=== PATIENT | female | born 1940 | race Caucasian/White ===

== ENCOUNTER 2016-11-02 12:57 | Inpatient (IN) | payer MEDICARE, BC ==
--- NOTE | ~2016-11-02 | EKG ---
PATIENT: ADALI TAYLOR UNIT #: [id number] Ventricular Rate: 57 BPM Atrial Rate: 57 BPM P-R Interval: 230 ms QRS Duration: 110 ms Q-T Interval: 494 ms QTC Calculation(Bezet): 480 ms P [place]: 89 degrees Calculated R [place]: -11 degrees Calculated T [place]: -119 degrees Diagnosis Line: Sinus bradycardia with 1st degree A-V block Diagnosis Line: Septal infarct , age undetermined Diagnosis Line: ST and T wave abnormality, consider anterolateral Diagnosis Line: ischemia Diagnosis Line: Abnormal ECG Diagnosis Line: When compared with ECG of 04-NOV-2016 09:29, Diagnosis Line: Nonspecific T wave abnormality, worse in Inferior Diagnosis Line: leads Diagnosis Line: QT has shortened Diagnosis Line: Confirmed by OTILIO KENDALL, OSCAR ([id number]) on Diagnosis Line: 11/07/2016 3:56:33 PM INTERPRETING MD: JAVIER
--- NOTE | ~2016-11-02 | EKG ---
PATIENT: ADALI TAYLOR UNIT #: [id number] Ventricular Rate: 76 BPM Atrial Rate: 76 BPM P-R Interval: 218 ms QRS Duration: 114 ms Q-T Interval: 472 ms QTC Calculation(Bezet): 531 ms P [place]: 75 degrees Calculated R [place]: -22 degrees Calculated T [place]: 180 degrees Diagnosis Line: Sinus rhythm with 1st degree A-V block Diagnosis Line: Left ventricular hypertrophy with repolarization Diagnosis Line: abnormality Diagnosis Line: Prolonged QT Diagnosis Line: Abnormal ECG Diagnosis Line: When compared with ECG of 02-NOV-2016 13:40, Diagnosis Line: Sinus rhythm has replaced Atrial flutter Diagnosis Line: T wave inversion no longer evident in Inferior Diagnosis Line: leads Diagnosis Line: T wave inversion more evident in Anterolateral Diagnosis Line: leads Diagnosis Line: QT has lengthened Diagnosis Line: Confirmed by TIAGO HAIRSTON MD ([id number]) on 11/05/2016 Diagnosis Line: 7:26:59 AM INTERPRETING MD: MARIKA KENDALL
--- NOTE | ~2016-11-02 | CR72 ---
[facility] A Service of [facility] & [facility] / [facility] RADIOLOGY TEXT RESULTS PATIENT: ADALI TAYLOR LOCATION: [facility] [id number] : 41 UNIT #: [id number] AGE: [address]: Jay Abbott MD SEX: F ORDER DR: [id number] [facility] [address] [place], [place] [address] [id number] I MR#: [id number] #: [id number] NAME: ADALI TAYLOR : 1940 SEX: F STUDY DATE/TIME: 11/02/2016 15:53 UNIT: [facility] ROOM: [facility] STUDY DESCRIPTION: CR Chest Single View Portable Attending Physician: Jay Abbott M.D. Ordering Physician: Anita Verdugo M.D. Primary Care Physician: Mercedes Vargas M.D. MEDICAL IMAGING REPORT This report is preliminary unless electronic signature is present EXAM Single view of the chest, 11/02/16 at 15:53 hours COMPARISON STUDIES Chest two views dated 02/11/12 HISTORY Chest pain today. Cough and congestion. FINDINGS Two views of the chest were obtained. Postoperative cardiac changes are noted with evidence of aortic valve replacement. There is diffuse prominence of the interstitial markings which could be related to acute or chronic interstitial lung disease. Given that it is slightly more prominent when compared to the previous study from 5 years, it could be due to mild interval worsening, and partly it could also be technical. There is mild opacification of the left lateral CP angle, new. It could be related to pleural thickening and/or mild fluid. No pneumothorax. Borderline sized heart. Mild bilateral shoulder osteoarthritic changes, particularly involving the acromioclavicular joints. Dictated by... Madeline Csatano M.D. THIS IS AN ELECTRONICALLY VERIFIED REPORT Madeline Castano M.D. at 11/03/2016 5:12 PM CPR/ea TD: 11/02/2016 22:47 JOB #: [id number] [facility] A Service of [facility] & [facility] RADIOLOGY TEXT RESULTS PATIENT: ADALI TAYLOR LOCATION: [place] [address] : [birth year] UNIT #: [id number] AGE: [address]: Jay Abbott MD SEX: F ORDER DR: MEDICAL IMAGING REPORT Page 1 of 1 COPY
--- NOTE | ~2016-11-02 | HP ---
Unit #: [id number] #: [id number] Patient: ADALI TAYLOR [id number] [place] [address] [facility]. [place], [place] [address] [id number] I MR#: [id number] NAME: ADALI TAYLOR ROOM: 563 Age: 76 Sex: F Admission Date: 11/03/2016 : 1940 Attending Physician: Jay Abbott M.D. Primary Care Physician: Mercedes Vargas M.D. HISTORY AND PHYSICAL HISTORY OF PRESENT ILLNESS This is a 76-year-old female known to Dr. Abbott with a past medical history of hypertension, hyperlipidemia, and valvular heart disease with severe mitral insufficiency status post mitral valve replacement with a [place] mechanical valve on August 08, 2002 at [facility]. Additional past medical history includes: COPD, osteoarthritis, and peripheral neuropathy. The patient presented to the hospital with complaints of shortness of breath and weakness for the past two weeks. She has also had a nonproductive cough. In the emergency department, her INR was 6.6. Additional labs revealed a hemoglobin of 14.3 with a platelet count of 215,000. Potassium was normal. Creatinine was 1 with a BUN of 14. BNP was mildly elevated at 463. Chest x-ray revealed possible underlying interstitial lung disease with a mild opacity in the left lateral CT angle. EKG revealed atrial flutter with a ventricular rate of 84 beats per minute. There were some T-wave abnormalities in the inferolateral leads. She was admitted for new-onset atrial fibrillation and congestive heart failure. PAST MEDICAL HISTORY 1. Severe mitral regurgitation, status post mitral valve replacement using a [address] [place] mechanical heart valve per Dr. Escobedo on August 08, 2002 at [facility]. 2. Cardiac catheterization, July 1995, was positive for vasospastic angina and an inferolateral wall myocardial infarction. See full report. 3. A 2D echocardiogram, August 10, 2002, revealed left ventricular ejection fraction greater than 75% while on dobutamine. Normal functioning prosthetic valve. Calculated prosthetic mitral valve area of 4.26 cm squared with a peak gradient of 19 mmHg and a mean gradient of 6 mmHg. [id number] tricuspid regurgitation. RVSP 40-50 mmHg. 4. Chronic anticoagulation with Coumadin. 5. Hypertension. 6. Hyperlipidemia. 7. Infrarenal abdominal aortic aneurysm, details unavailable. 8. COPD. 9. Osteoarthritis. 10. Peripheral neuropathy. 11. Vitamin D deficiency. 12. Reformed smoker. SOCIAL HISTORY Unit #: [id number] #: [id number] Patient: ADALI TAYLOR A Nonsmoker. PAST SURGICAL HISTORY 1. Cataract extraction. 2. Hysterectomy. 3. Mechanical mitral valve replacement. 4. Previous cardiac catheterization, July 1995, was consistent with vasospastic angina and inferior lateral wall myocardial infarction. 5. Tonsillectomy. HOME MEDICATIONS 1. Mucinex ER 600/30 mg one tablet p.o. b.i.d. 2. Edarbyclor 40/25 mg one tablet p.o. daily. 3. Carvedilol 6.25 mg p.o. b.i.d. 4. Tramadol 50 mg p.o. b.i.d. 5. Warfarin 5 mg p.o. Thursday through Thursday and 7.5 mg on Thursday. ALLERGIES No known drug allergies. SOCIAL HISTORY The patient is a reformed smoker. There are no reports of alcohol or illicit drug use. FAMILY HISTORY Mother and sister had hypertension. Brother has diabetes and high cholesterol. REVIEW OF SYSTEMS A 10-point review of systems negative except for details noted above in HPI. PHYSICAL EXAMINATION CONSTITUTIONAL: This is a 76-year-old female in no acute distress. SKIN: Warm and dry. NECK: Supple. No jugular vein distention. No hepatojugular reflux. Normal carotid upstrokes. No carotid bruits auscultated. HEART: S1, S2. No murmurs, rubs, or gallops. LUNGS: Bilateral breath sounds have good air entry throughout all lung chappell. Diminished in the bases. Respirations even and nonlabored. No rales, rhonchi, or wheezes. ABDOMEN: Soft, nontender, nondistended. Positive bowel sounds auscultated x4 quadrants. No ascites noted. EXTREMITIES: Bilateral lower extremities: No significant edema. DP and PT pulses 2+. Capillary refill less than 3 seconds. DIAGNOSTIC STUDIES LABORATORY: White cell count 9.8, hemoglobin 14.3, hematocrit 43.4, platelets 215,000. Sodium 133, potassium 4.4, chloride 92, CO2 of 29, BUN 14, creatinine 1, glucose 111. Magnesium 2. BNP 463. Urinalysis negative. INR 6.6. IMAGING: Chest x-ray reveals questionable underlying interstitial lung disease. Mild opacification in the left lateral costophrenic angle. CARDIOVASCULAR: Electrocardiogram reveals atrial flutter with T-wave abnormality noted inferolateral leads. Ventricular rate 84 beats per minute. Unit #: [id number] #: [id number] Patient: ADALI TAYLOR IMPRESSION 1. New-onset atrial fibrillation with controlled ventricular rate. 2. Status post mitral valve replacement with mechanical prosthesis for severe mitral regurgitation in July 2002. 3. Congestive heart failure, secondary to atrial fibrillation and underlying mitral valve disease. 4. Over anticoagulation due to poor oral intake. PLAN 1. The patient presented to the hospital with complaints of weakness and a cough. She was then admitted for newly diagnosed atrial fibrillation/atrial flutter and congestive heart failure. Will adjust Coreg and start amiodarone. 2. The patient will be diuresed. 3. Coumadin will be placed on hold. Will repeat a daily PT/INR. If the patient does not convert to normal sinus rhythm in the next 24 hours, will plan for direct current cardioversion. Dictated by Jes Romo APRN for Yevgeniy Zaman TD: 11/04/2016 08:58 JOB #: [id number] HISTORY AND PHYSICAL Page 1 of 1 X X HISTORY AND PHYSICAL
--- NOTE | ~2016-11-02 | CR63 ---
[facility] A Service of [facility] / [facility] RADIOLOGY TEXT RESULTS PATIENT: ADALI TAYLOR LOCATION: [place] [address]- : [birth year] UNIT #: [id number] AGE: [address]: Jay Abbott MD SEX: F ORDER DR: [id number] [facility] [address] [place], [place] [address] [id number] I MR#: [id number] Acc #: [id number] NAME: ADALI ATYLOR : 1940 SEX: F STUDY DATE/TIME: 11/06/2016 7:41 UNIT: [facility] ROOM: [facility] STUDY DESCRIPTION: CR Chest 2 View Attending Physician: Jay Abbott M.D. Ordering Physician: Jay Abbott M.D. Primary Care Physician: Mercedes Vargas M.D. MEDICAL IMAGING REPORT This report is preliminary unless electronic signature is present EXAM Chest PA and lateral 11/06/2016 HISTORY Shortness of breath for 8 days. COPD. Benign essential hypertension. Cough. FINDINGS There is mild cardiac enlargement status post median sternotomy and valvular replacement. Thoracic aorta is minimally calcified. Lungs are hyperinflated but otherwise clear. There are no pleural effusions. IMPRESSION Mild cardiac enlargement status post median sternotomy. No active pulmonary disease. Dictated by... Renard Raymond M.D. THIS IS AN ELECTRONICALLY VERIFIED REPORT Renard Raymond M.D. at 11/06/2016 1:44 PM REYES/bryson TD: 11/06/2016 09:53 JOB #: [id number] MEDICAL IMAGING REPORT Page 1 of 1 COPY
--- NOTE | ~2016-11-02 | DS ---
Unit #: [id number] #: [id number] Patient: ADALI TAYLOR [id number] [address] [address] [id number] I MR#: [id number] NAME: ADALI TAYLOR ROOM: 3 Age: 76 Sex: F Admission Date: 11/03/2016 : 1940 Discharge Date: 11/06/2016 Attending Physician: Jay Abbott M.D. Primary Care Physician: Mercedes Vargas M.D. DISCHARGE SUMMARY ADDENDUM Correction: The patient was not on home oxygen and is being evaluated here in the hospital to go home with home oxygen. Dictated by... Janet Arnold APRN for Yevgeniy Zaman TD: 11/06/2016 15:58 JOB #: [id number] DISCHARGE SUMMARY Page 1 of 1 X X DISCHARGE SUMMARY
--- NOTE | ~2016-11-02 | DS ---
Unit #: [id number] #: [id number] Patient: ADALI TAYLOR [id number] [address] [place], [place] [address] [id number] MR#: [id number] NAME: ADALI TAYLOR ROOM: 563 Age: 76 Sex: F Admission Date: 11/03/2016 : 1940 Discharge Date: 11/06/2016 Attending Physician: Jay Abbott M.D. Primary Care Physician: Mercedes Vargas M.D. DISCHARGE SUMMARY HOSPITAL COURSE The patient is a 76-year-old female who is known to Dr. Abbott who presented to the hospital with shortness of breath and weakness x2 weeks. She was found to be in A-flutter with a controlled ventricular rate which was new for her. The patient also had a supratherapeutic INR at 6.6 and some mild CHF due to her A-flutter as well as the history of the mitral valve replacement. Initially, the patient was started on an amiodarone IV load as well as a maintenance dose with the plan to cardiovert if her rhythm did not convert in 24 hours. Therefore, the patient did not convert and was taken for cardioversion on 11/04/16. The patient was placed on p.o. amiodarone and her Coreg dose decreased. The patient has maintained sinus elias to sinus rhythm since the cardioversion. The patient was given FFP on admission to decrease her INR and the Coumadin was held. Coumadin has since been restarted on the INR on date of discharge is at 1.5 with the plan to give subcu Lovenox dose today prior to discharge and then to increase the daily dose back to her home dose with recheck on Thursday. The patient had an echo done on 11/03/16 that showed an EF of 15 to 20%, inferior wall akinesis, moderately dilated left atrium, mildly enlarged right atrium, moderate TR, RVSP of 54 mmHg and a small pericardial effusion versus fat tissue. On the date of discharge, the patient is stable with no complaints of chest pain, dizziness, lightheadedness or shortness of breath. The patient has been on oxygen during her stay. We will plan for nurse to titrate and wean off if the patient can tolerate no oxygen. She was on oxygen at home. Therefore, she should be good. We will follow. DISCHARGE ALLERGIES No known allergies. DISCHARGE MEDICATIONS 1. Amiodarone 200 mg p.o. twice a day for two weeks, then 200 mg daily. 2. Coumadin 5 mg p.o. daily. 3. Mucinex DM one tab q.12 hours as needed for congestion. 4. Coreg 6.25 mg p.o. twice a day. 5. Lasix 40 mg p.o. twice a day. 6. Losartan 100 mg p.o. daily. 7. Tramadol 50 mg p.o. twice a day. DISCHARGE LABS PT and INR on Thursday and a BNP and BMP one week prior to the office visit which is scheduled for December 11 at 2:45. Unit #: [id number] #: [id number] Patient: ADALI TAYLOR Most recent laboratory studies show CK total 36, sodium 134, potassium 4.5, chloride 91, CO2 36, glucose 95, BUN 26, creatinine 1.1. BNP 148. White count 7.7, hemoglobin 11.9, hematocrit 36.3, platelets 178. INR 1.5. Troponin 0.04. Diagnostic imaging: Chest x-ray showed mild cardiac enlargement but no active pulmonary disease. DISCHARGE PLAN Patient to be discharged home today with followup in the office as well as lab work to be done on Thursday also prior to the visit in one month from now. The patient is stable and ready for discharge home. PHYSICAL EXAMINATION GENERAL APPEARANCE: This a 76-year-old white female who is alert and oriented x3, in no apparent distress. VITAL SIGNS: Blood pressure 125/76. Temperature 97.7. Heart rate 59. Respirations 18. CARDIOVASCULAR: Regular rate. No ectopy. No murmurs. No rubs. No gallops. LUNGS: Clear. No rales or rhonchi. ABDOMEN: Soft. Bowel sounds positive. Nontender. Nondistended. No masses. EXTREMITIES: No swelling. NEUROLOGIC: No neuro deficits noted. Dictated by... Janet Arnold APRN for Yevgeniy Zaman TD: 11/06/2016 14:16 JOB #: [id number] DISCHARGE SUMMARY Page 1 of 1 X X DISCHARGE SUMMARY
--- NOTE | ~2016-11-02 | EKG ---
PATIENT: ADALI TAYLOR UNIT #: [id number] Ventricular Rate: 84 BPM Atrial Rate: 258 BPM QRS Duration: 108 ms Q-T Interval: 394 ms QTC Calculation(Bezet): 465 ms P [place]: 122 degrees Calculated R [place]: 53 degrees Calculated T [place]: -33 degrees Diagnosis Line: Atrial flutter with variable A-V block Diagnosis Line: Septal infarct , age undetermined Diagnosis Line: Abnormal ECG Diagnosis Line: No previous ECGs available Diagnosis Line: Confirmed by TIAGO HAIRSTON MD ([id number]) on 11/02/2016 Diagnosis Line: 4:55:16 PM INTERPRETING MD: MARIKA KENDALL
[~2016-11-02 12:57] MED LIST: AMOXICILLIN PO; CALCIUM + D 6001 TA1 PO; CALCIUM 500 + D1 TAB PO; COREG6.25 MG PO; COUMADIN PO; COUMADIN7.5 MG; COZAAR PO; CRESTOR PO; CRESTOR10 MG PO; HYZAAR 100-25 T1 TAB PO; LOSARTAN-HCTZ1 EAC1 PO; LOVENOX SUBQ; NEXIUM PO; ZYRTEC PO
[2016-11-02 14:43] LABS: POC - CKMB 1.3 ng/mL (0.0-7.9); POC - TROPONIN <0.05 ng/mL (<=0.05)
[2016-11-02 14:53] LABS: BASOPHIL% 0.3 % (0-2.5); EOSINOPHIL# 0.1 X10e3 (0-0.7); EOSINOPHIL% 0.8 % (0.0-7.0); HEMATOCRIT 43.4 % (35.0-45.0); HEMOGLOBIN 14.3 gm/dL (12.0-16.0); LYMPHOCYTE# 1.1 X10e3 (1.0-3.5); LYMPHOCYTE% 11.4 % (17.0-45.0); MEAN CELL VOLUME 92.7 FL (83-96); MEAN CORPUSCULAR HEMOGLOBIN 30.6 PG (28-34); MEAN PLATELET VOLUME 9.3 FL (6.5-11.5); MONOCYTE# 1.1 X10e3 (0-1.0); MONOCYTE% 11.2 % (3.0-12.0); NEUTROPHIL# 7.5 X10e3 (1.5-7.1); NEUTROPHIL% 76.3 % (40-75); PLATELET COUNT 215 X10e3 (140-420); RED BLOOD COUNT 4.68 X10e (3.90-5.30); RED CELL DISTRIBUTION WIDTH 14.5 % (11.0-15.5); WHITE BLOOD COUNT 9.8 X10e3 (4.0-10.5)
[2016-11-02 14:58] LABS: DIFF IND NO
[2016-11-02 15:09] LABS: PROTHROMBIN TIME (PATIENT) 73.8 SECONDS (9.6-11.5)
[2016-11-02 15:14] LABS: ALBUMIN SERUM 4.2 g/dL (3.5-5.0); BILIRUBIN, DIRECT 0.2 mg/dL (0.0-0.2); BILIRUBIN,INDIRECT 0.6 mg/dL (0.0-0.9); BILIRUBIN,TOTAL 0.8 mg/dL (0.2-2.0); BUN/CREATININE RATIO 12.22; CALCIUM SERUM 9.6 mg/dL (8.4-10.2); CREATININE SERUM 0.9 mg/dL (0.6-1.4); GLOM FILT RATE Estimated 62.6 mL/min (>60); POTASSIUM 4.6 mmol/L (3.5-5.1); PROTEIN TOTAL SERUM 7.7 g/dL (6.0-8.3)
[2016-11-02] MEDS ORDERED: EDARBYCLOR 40-1 EAC1 PO (15:16)
[2016-11-02] MEDS ORDERED: MUCINEX DM ER1 EACH PO (15:16)
[2016-11-02] MEDS ORDERED: TRAMADOL HCL50 M2 PO (15:17)
[2016-11-02] MEDS ORDERED: CARVEDILOL6.25 MG PO (15:17)
[2016-11-02 15:26] LABS: INR 6.6
[2016-11-02] MEDS ORDERED: COUMADIN5 MG PO (15:26)
[2016-11-02] MEDS ORDERED: COUMADIN7.5 MG PO (15:26)
[2016-11-02 16:23] LABS: URINE SOURCE CLEAN CATCH
[2016-11-02 16:26] LABS: URINE APPEARANCE CLEAR; URINE BILIRUBIN NEG (NEG); URINE BLOOD TRACE (NEG); URINE COLOR YELLOW; URINE GLUCOSE NEG (NEG); URINE KETONE NEG (NEG); URINE LEUKOCYTE ESTERASE NEG (NEG); URINE NITRATE NEG (NEG); URINE PH 6.5 (5-8); URINE PROTEIN NEG (NEG); URINE SPECIFIC GRAVITY 1.008 (1.003-1.035)
[2016-11-02 16:29] LABS: URBCS1 AUWI 0-2 /[HPF] (0-2); URINE BACTERIA AUWI NEG (NEGATIVE); URINE SQUAMOUS EPITHELIAL CELL NONE SEEN /[HPF]; UWBCS1 AUWI 0-2 (0-5)
[2016-11-02 16:43] LABS: CULTURE INDICATED? NO
[2016-11-02 16:45] LABS: POC - CKMB 1.3 ng/mL (0.0-7.9); POC - TROPONIN <0.05 ng/mL (<=0.05)
[2016-11-03 07:05] LABS: PROTHROMBIN TIME (PATIENT) 93.2 SECONDS (9.6-11.5)
[2016-11-03 07:09] LABS: INR 8.2
[2016-11-03 07:19] LABS: THYROID STIMULATING HORMONE 1.34 uIU/ml (0.34-5.60)
[2016-11-03 07:22] LABS: CALCIUM SERUM 9.6 mg/dL (8.4-10.2); GLOM FILT RATE Estimated 55.1 mL/min (>60); POTASSIUM 4.4 mmol/L (3.5-5.1)
[2016-11-03 07:25] LABS: FREE THYROXIN (T4) 1.39 ng/dL (0.58-1.64)
[2016-11-03 14:54] LABS: INR 3.5
[2016-11-03 14:55] LABS: PROTHROMBIN TIME (PATIENT) 38.9 SECONDS (9.6-11.5)
[2016-11-04 06:31] LABS: INR 3.2; PROTHROMBIN TIME (PATIENT) 35.3 SECONDS (9.6-11.5)
[2016-11-05 05:57] LABS: INR 1.8; PROTHROMBIN TIME (PATIENT) 19.2 SECONDS (9.6-11.5)
[2016-11-05 06:27] LABS: BUN/CREATININE RATIO 18.33; CREATININE SERUM 1.2 mg/dL (0.6-1.4); GLOM FILT RATE Estimated 44.2 mL/min (>60); POTASSIUM 3.4 mmol/L (3.5-5.1)
[2016-11-06 06:37] LABS: HEMATOCRIT 36.3 % (35.0-45.0); HEMOGLOBIN 11.9 gm/dL (12.0-16.0); MEAN CELL VOLUME 91.8 FL (83-96); MEAN CORPUSCULAR HEMOGLOBIN 30.1 PG (28-34); MEAN CORPUSCULAR HGB CONC 32.8 g/dL (30-36); MEAN PLATELET VOLUME 9.1 FL (6.5-11.5); RED BLOOD COUNT 3.96 X10e (3.90-5.30); RED CELL DISTRIBUTION WIDTH 14.2 % (11.0-15.5); WHITE BLOOD COUNT 7.7 X10e3 (4.0-10.5)
[2016-11-06 06:40] LABS: INR 1.5; PROTHROMBIN TIME (PATIENT) 15.9 SECONDS (10.0-11.7)
[2016-11-06 07:04] LABS: BUN/CREATININE RATIO 23.63; CALCIUM SERUM 9.3 mg/dL (8.4-10.2); CK TOTAL 36 IU/L (26-140); CREATININE SERUM 1.1 mg/dL (0.6-1.4); GLOM FILT RATE Estimated 49.1 mL/min (>60); POTASSIUM 4.5 mmol/L (3.5-5.1)
[2016-11-06] MEDS ORDERED: AMIODARONE PO (12:58)
[2016-11-06] MEDS ORDERED: DOCUSATE SODIU100 MG PO (12:59)
[2016-11-06] MEDS ORDERED: LASIX PO (13:00)
[2016-11-06] MEDS ORDERED: FUROSEMIDE40 MG PO (13:00)
[2016-11-06] MEDS ORDERED: COZAAR100 MG PO (13:01)
== END 2016-11-06 14:36 | disposition home health service (06) | DRG 308 ==
LOC: CED 12:57 → CEDOF 17:00 → CED 17:00 → CEDOF 17:13 → CED 17:13 → CEDOF 19:57 → C5C 19:57 → CEDOF 11-03 10:02 → CED 11-03 10:02 → C5C 11-03 10:02
PROVIDERS: Emergency Medicine; Internal Medicine Cardiovascular Disease
PROC: 30233L1 Transfusion of Nonautologous Fresh Plasma into Peripheral Vein, Percutaneous Approach (ICD-10-PCS; principal; 2016-11-03)
PROC: 30233K1 Transfusion of Nonautologous Frozen Plasma into Peripheral Vein, Percutaneous Approach (ICD-10-PCS; 2016-11-03)
PROC: 3E0234Z Introduction of Serum, Toxoid and Vaccine into Muscle, Percutaneous Approach (ICD-10-PCS; 2016-11-06)
PROC: B246YZZ Ultrasonography of Right and Left Heart using Other Contrast (ICD-10-PCS; 2016-11-06)
DX: I48.91 Unspecified atrial fibrillation (principal); I50.21 Acute systolic (congestive) heart failure; J44.9 Chronic obstructive pulmonary disease, unspecified; G62.9 Polyneuropathy, unspecified; I11.0 Hypertensive heart disease with heart failure; E78.5 Hyperlipidemia, unspecified; M19.90 Unspecified osteoarthritis, unspecified site; E55.9 Vitamin D deficiency, unspecified; Z87.891 Personal history of nicotine dependence; Z90.710 Acquired absence of both cervix and uterus; Z98.49 Cataract extraction status, unspecified eye; Z23 Encounter for immunization
CPT/HCPCS: 36415; 71010; 71020; 80048; 80061; 80076; 81003; 82550; 82553; 83735; 83880; 84439; 84443; 84484; 85025; 85027; 85610; 86900; 86901; 90732; 92960; 93005; 93306; 94640; 99291; G0009; J0282; J0461; J0692; J1650; J1940; J2250; J2310; J2405; J2550; J3010; P9059

== ENCOUNTER → 2016-11-28 | Outpatient (CLI) | payer MEDICARE, BC ==
[~2016-11-28] MED LIST changes: +AMIODARONE PO; +CARVEDILOL6.25 MG PO; +COUMADIN5 MG PO; +COUMADIN7.5 MG PO; +COZAAR100 MG PO; +DOCUSATE SODIU100 MG PO; +EDARBYCLOR 40-1 EAC1 PO; +FUROSEMIDE40 MG PO; +LASIX PO; +MUCINEX DM ER1 EACH PO; +TRAMADOL HCL50 M2 PO
[2016-11-28 10:31] LABS: HEMATOCRIT 37.9 % (35.0-45.0); HEMOGLOBIN 12.5 gm/dL (12.0-16.0); MEAN CELL VOLUME 90.1 FL (83-96); MEAN CORPUSCULAR HEMOGLOBIN 29.7 PG (28-34); MEAN PLATELET VOLUME 9.5 FL (6.5-11.5); RED BLOOD COUNT 4.21 X10e (3.90-5.30); RED CELL DISTRIBUTION WIDTH 14.5 % (11.0-15.5); WHITE BLOOD COUNT 9.1 X10e3 (4.0-10.5)
[2016-11-28 11:04] LABS: BUN/CREATININE RATIO 18.46; CALCIUM SERUM 9.4 mg/dL (8.4-10.2); CREATININE SERUM 1.3 mg/dL (0.6-1.4); GLOM FILT RATE Estimated 40.1 mL/min (>60); POTASSIUM 4.1 mmol/L (3.5-5.1)
== END | disposition home or self-care (01) ==
LOC: CLAB 10:04
PROVIDERS: Internal Medicine
DX: I50.9 Heart failure, unspecified (principal); E87.6 Hypokalemia
CPT/HCPCS: 36415; 80048; 85027

== ENCOUNTER → 2016-12-04 | Outpatient (CLI) | payer MEDICARE, BC ==
[2016-12-04 14:43] LABS: BUN/CREATININE RATIO 16.87; CALCIUM SERUM 9.4 mg/dL (8.4-10.2); CREATININE SERUM 1.6 mg/dL (0.6-1.4); GLOM FILT RATE Estimated 31.2 mL/min (>60); POTASSIUM 4.2 mmol/L (3.5-5.1)
== END | disposition home or self-care (01) ==
LOC: CLAB 13:33
PROVIDERS: Internal Medicine Cardiovascular Disease
DX: I50.9 Heart failure, unspecified (principal); I48.91 Unspecified atrial fibrillation
CPT/HCPCS: 36415; 80048; 83880